=== PATIENT | male | born 1990 | race Hispanic/Latino ===

== ENCOUNTER 2017-02-07 18:27 | Emergency (ER) | payer OTHER ==
[2017-02-07 18:33] VITALS: BP 150/88; PULSE 63; RESP 16; TEMP 98; O2SAT 99
[2017-02-07] MEDS ORDERED: Sodium Chloride 0.9% 1,000 ML IV STA (19:21)
--- NOTE | 2017-02-07 19:34 | ED PDOC ---
HPI: Abdomen Time Seen by Provider: 02/07/17 19:13 Chief Complaint (Nursing): Abdominal Pain Chief Complaint (Provider): Abdominal Pain History Per: Patient History/Exam Limitations: no limitations Onset/Duration Of Symptoms: Days (x2) Current Symptoms Are (Timing): Still Present Additional Complaint(s): Edy Cassidy is a 26 year old male with no significant past medical history who presents to the ED complaining of left flank pain x2 days. Patient states the pain began yesterday around 6pm. States that every 10 seconds he feels a sharp pressure in his side which radiates towards his front. Denies nausea, vomiting, and urinary symptoms. Confirms normal stools. Denies fever or chills. PMD: No PMD Past Medical History Reviewed: Historical Data, Nursing Documentation, Vital Signs Vital Signs: Last Vital Signs Temp 98.0 F 02/07/17 18:30 Pulse 63 02/07/17 18:30 Resp 16 02/07/17 18:30 BP 150/88 02/07/17 18:30 Pulse Ox 99 02/07/17 22:54 - Medical History PMH: No Chronic Diseases - Surgical History Surgical History: No Surg Hx - Family History Family History: States: Unknown Family Hx - Social History Current smoker - smoking cessation education provided: No Alcohol: None Drugs: Denies - Home Medications Home Medications: Ambulatory Orders Medication Instructions Recorded Docusate Sodium [Dulcolax Stool 100 mg PO BID #30 capsule 02/07/17 Softener] - Allergies Allergies/Adverse Reactions: Allergies Allergy/AdvReac Type Severity Reaction Status Date / Time No Known Allergies Allergy Verified 02/07/17 18:33 Review of Systems ROS Statement: Except As Marked, All Systems Reviewed And Found Negative Constitutional: Negative for: Fever, Chills Gastrointestinal: Positive for: Abdominal Pain (left flank pain). Negative for : Nausea, Vomiting Genitourinary Male: Negative for: Dysuria, Frequency, Incontinence, Hematuria Physical Exam - Reviewed Nursing Documentation Reviewed: Yes Vital Signs Reviewed: Yes - Physical Exam Appears: Positive for: Well, Non-toxic, No Acute Distress Head Exam: Positive for: ATRAUMATIC, NORMAL INSPECTION, NORMOCEPHALIC Skin: Positive for: Normal Color, Warm, Dry Eye Exam: Positive for: EOMI, Normal appearance, PERRL Neck: Positive for: Normal, Painless ROM, Supple Cardiovascular/Chest: Positive for: Regular Rate, Rhythm. Negative for: Murmur Respiratory: Positive for: Normal Breath Sounds. Negative for: Wheezing Gastrointestinal/Abdominal: Positive for: Normal Exam, Bowel Sounds, Soft. Negative for: Tenderness Back: Positive for: Normal Inspection. Negative for: L CVA Tenderness, R CVA Tenderness Extremity: Positive for: Normal ROM. Negative for: Pedal Edema, Deformity Neurologic/Psych: Positive for: Alert, Oriented (x3). Negative for: Motor/ Sensory Deficits - Laboratory Results Result Diagrams: 02/07/17 19:30 02/07/17 19:30 - ECG O2 Sat by Pulse Oximetry: 99 (RA) Pulse Ox Interpretation: Normal Medical Decision Making Medical Decision Making: Time: 19:21 Initial Impression: Muscular strain vs. possible kidney stone --BMP --CBC w/ differential --Sodium Chloride 0.9% 1,000 ml IV --Toradol 30 mg IVP --Urinalysis --Reevaluation Time: 22:23 CT Abdomen and Pelvis FINDINGS: Lower thorax: The visualized portions of the lung bases are normal. ABDOMEN: Liver: Normal. Gallbladder and bile ducts: The gallbladder is contracted with a small 3 mm intraluminal calcification likely representing a small stone. No ductal dilation. Pancreas: The pancreas is normal. No ductal dilation. Spleen: The spleen is normal. Adrenals: The adrenal glands are normal. Kidneys and ureters: The kidneys are normal. The ureters are normal. No obstructing stones. No hydronephrosis. Stomach and bowel: Hyperdense material within the gastric lumen likely represents ingested material. Moderate stool load. No obstruction. No mucosal thickening. Appendix: A normal appendix is identified. PELVIS: Bladder: The bladder is normal. No stones. Reproductive: The prostate gland and seminal vesicles are normal. ABDOMEN and PELVIS: Intraperitoneal space: Normal. No free air. No significant fluid collection. Bones/joints: Thoracic spondylosis. Multiple Schmorl's nodes. Developmental or remote posttraumatic findings in the L1 anterior-inferior endplate and L3 anterior superior endplate. No acute osseous abnormality. Soft tissues: Normal. Vasculature: Normal. No abdominal aortic aneurysm. Lymph nodes: Normal. No enlarged lymph nodes. IMPRESSION: 1. No acute abdominopelvic abnormality. 2. Cholelithiasis without CT findings to suggest acute cholecystitis. 3. Moderate stool load. 2223 Pt. informed of results, states he feels well. States he became a vegan recently, may be cause of abdominal pain. Recommended diet modification and stool softeners. Advsied to f/u w/ PMD. Return precautions given. Scribe Attestation: Documented by Vern More acting as a scribe for Colt Araujo MD. Scribe Attestation: All medical record entries made by the Scribe were at my direction and personally dictated by me. I have reviewed the chart and agree that the record accurately reflects my personal performance of the history, physical exam, medical decision making, and the department course for this patient. I have also personally directed, reviewed, and agree with the discharge instructions and disposition. Disposition - Clinical Impression Clinical Impression: Constipation - Disposition Referrals: Sara Gallagher [Outside] Disposition Time: 22:23 Condition: STABLE Prescriptions: Docusate Sodium [Dulcolax Stool Softener] 100 mg PO BID #30 capsule Instructions: Constipation (DC), Acute Abdominal Pain (DC) Forms: [employer] (Korean)
[2017-02-07 19:56] LABS: BASO # 0.1 K/uL (0.0-0.2); BASO % 0.9 % (0.0-2.0); EOS # 0.1 K/uL (0.0-0.7); EOS % 2.1 % (0.0-4.0); HEMATOCRIT 45.4 % (35.0-51.0); LYMPH # 1.8 K/uL (1.0-4.3); LYMPH % 24.5 % (20.0-40.0); MEAN CELL VOLUME 94.5 fl (80.0-94.0); MEAN CORPUSCULAR HEMOGLOBIN 31.5 pg (27.0-31.0); MEAN CORPUSCULAR HGB CONC 33.3 g/dL (33.0-37.0); MEAN PLATELET VOLUME 8.6 fl (7.2-11.7); MONO # 0.6 K/uL (0.0-0.8); NEUT # 4.6 K/uL (1.8-7.0); NEUT % 63.5 % (50.0-75.0); NRBC % 0.1 % (0.0-0.0); RED CELL DISTRIBUTION WIDTH 13.3 % (11.5-14.5); WHITE BLOOD COUNT 7.2 K/uL (4.8-10.8)
[2017-02-07 20:05] LABS: CALCIUM 9.5 mg/dL (8.4-10.2); CARBON DIOXIDE 23 mmol/L (22-30); CHLORIDE 103 mmol/L (98-107); GFR AFRICAN-AMERICAN > 60; GLUCOSE,RANDOM 91 mg/dL (75-110); SODIUM 137 mmol/l (132-148)
[2017-02-07 20:06] LABS: BLOOD UREA NITROGEN 25 mg/dl (9-20); POTASSIUM 4.4 MMOL/L (3.6-5.0)
[2017-02-07 20:15] LABS: RBC URINE 1 /hpf (0-3); URINE BILIRUBIN NEGATIVE (NEGATIVE); URINE BLOOD NEGATIVE (NEGATIVE); URINE COLOR YELLOW (YELLOW); URINE GLUCOSE (UA) NEG (Normal); URINE KETONE NEGATIVE (NEGATIVE); URINE LEUKOCYTE ESTERASE NEG Leu/uL (Negative); URINE PROTEIN NEGATIVE (NEGATIVE); URINE UROBILINOGEN 0.2-1.0 mg/dL (0.2-1.0); WBC URINE 1 /hpf (0-5)
--- NOTE | 2017-02-08 10:22 | CT ---
PROCEDURE: CT Abdomen and Pelvis without intravenous contrast HISTORY: L flank pain COMPARISON: None. TECHNIQUE: Helical CT of the abdomen and pelvis was performed without oral or intravenous contrast as per referring physician request.. Contrast Dose: None Radiation dose: Total exam DLP = 487.92 mGy-cm. This CT exam was performed using one or more of the following dose reduction techniques: Automated exposure control, adjustment of the mA and/or kV according to patient size, and/or use of iterative reconstruction technique. FINDINGS: The lack of oral and intravenous contrast agents limits the evaluation of abdominal and pelvic viscera outside of the urolithiasis/renal colic indication. LOWER THORAX: Unremarkable. LIVER: Unremarkable. No gross lesion or ductal dilatation. GALLBLADDER AND BILE DUCTS: Minimal radiodense cholelithiasis identified within a contracted gallbladder. PANCREAS: Unremarkable. No gross lesion or ductal dilatation. SPLEEN: Unremarkable. ADRENALS: Unremarkable. No mass. KIDNEYS AND URETERS: No intrarenal radiodense calculi are seen bilaterally. No hydronephrosis. No perinephric reaction. VASCULATURE: Unremarkable. No aortic aneurysm. BOWEL: Unremarkable. No obstruction. No gross mural thickening. APPENDIX: Unremarkable. Normal appendix. PERITONEUM: Unremarkable. No free fluid. No free air. LYMPH NODES: Unremarkable. No enlarged lymph nodes. BLADDER: No radiodense urolithiasis is seen in the lumen of the urinary bladder which is distended and thin/smooth walled. REPRODUCTIVE: Unremarkable. BONES: No acute fracture. OTHER FINDINGS: None. IMPRESSION: Unremarkable non contrast enhanced CT of the abdomen and pelvis. Follow-up CT with contrast is available if clinically warranted. Trace cholelithiasis identified within a contracted gallbladder. Concordant preliminary report from [facility], 02/07/2017.
== END 2017-02-07 22:52 | disposition home or self-care (01) ==
LOC: H.ER 18:27
DX: K59.00 Constipation, unspecified (principal); K80.20 Calculus of gallbladder without cholecystitis without obstruction
CPT/HCPCS: 74176; 80048; 81003; 85025; 96374; 99282; J1885; J7040